=== PATIENT | male | born 1935 | race Caucasian/White ===

== ENCOUNTER 2018-01-22 15:20 | Emergency (ER) | END 2018-01-22 19:04 | disposition short-term general hospital (02) ==

== ENCOUNTER 2018-07-08 19:35 | Emergency (ER) | payer OTHER ==
[~2018-07-08] VITALS: Ht 172.7 cm; Wt 82.0 kg
[~2018-07-08 19:35] MED LIST: ACET-141 PO; ASPI81TA52 PO; ATOR40TA68 PO; CITA10TA10 PO; CYAN500T46 PO; DIV250 PO; DOCU250C68 PO; FINA5TAB4 PO; MELA5TAB4 PO; QUET100T32 PO; TAMS0.4C2 PO; TRAZ-111 PO
[2018-07-08 19:49] VITALS: Ht 172.7 cm; Wt 82.0 kg
--- NOTE | 2018-07-08 23:25 | ERD ---
ER Documentation Chief Complaint Chief Complaint found on floor @ SNF, unk mechanism fall, c/o back pain. +bears weight, NMS HPI This is an 82-year-old male with a past medical history of hyperlipidemia, significant dementia, seizure disorder, BPH who is presenting after a reported fall. The patient was found at his half-way facility on the floor next to his bed. It is unclear how the patient arrived there. It is unclear if the patient had a mechanical fall or if he syncopized. At the time, he was alert and at his baseline mentation. He was complaining of back pain. The patient did not endorse any other pain. He was able to bear weight and walk after the incident. History and physical is limited secondary to patient's chronic altered mentation. ROS Limited secondary to altered mentation. Medications Home Meds Reported Medications Acetaminophen* (Acetaminophen*) 500 MG Extra Strength Tablet, 500 MG PO Q6 PRN for PAIN AND OR ELEVATED TEMP, TAB 01/22/18 Quetiapine Fumarate* (Quetiapine Fumarate*) 100 Mg Tablet, 100 MG PO DAILY, TAB 01/22/18 Divalproex Sodium* (Divalproex Sodium*) 250 Mg Tablet.dr, 250 MG PO BID, #120 TAB 01/22/18 Cyanocobalamin* (Vitamin B12*) 500 Mcg Tab, 1000 MCG PO DAILY, TAB 01/22/18 Trazodone Hcl* (Trazodone Hcl*) 50 Mg Tablet, 50 MG PO QHS, #30 TAB 01/22/18 Tamsulosin Hcl* (Tamsulosin Hcl*) 0.4 Mg Cap.er.24h, 0.4 MG PO HS, CAP 01/22/18 Melatonin (Melatonin) 5 Mg Tablet, 5 MG PO HS, TAB 01/22/18 Finasteride* (Finasteride*) 5 Mg Tablet, 5 MG PO DAILY, TAB 01/22/18 Docusate Sodium* (Dok*) 250 Mg Capsule, 250 MG PO BID, #60 CAP 01/22/18 Citalopram Hydrobromide* (Celexa*) 10 Mg Tablet, 10 MG PO DAILY, #30 TAB 01/22/18 Atorvastatin* (Atorvastatin*) 40 Mg Tablet, 40 MG PO QHS, #30 TAB 01/22/18 Aspirin (Low Dose Aspirin) 81 Mg Tablet.dr, 81 MG PO DAILY, #30 TAB 01/22/18 Allergies Allergies: Coded Allergies: donepezil (Verified Allergy, Unknown, 01/22/18) PMhx/Soc History of Surgery: Yes (R-EYE CATARACT) Hx Miscellaneous Medical Probl: Yes (ALZHEIMER'S, PROSTATE CA, R-EYE RETINAL DETACHMENT) Hx Alcohol Use: No Hx Substance Use: No Hx Tobacco Use: No Smoking Status: Never smoker FmHx The patient is unable to provide secondary to altered mentation. Physical Exam Vitals Vital Signs Date Temp Pulse Resp B/P (MAP) Pulse Ox O2 O2 Flow FiO2 Time Delivery Rate 07/08/18 98.1 68 18 122/76 100 Room Air 23:50 (91) 07/08/18 98.1 52 16 157/85 98 Room Air 20:55 (109) 07/08/18 97.7 64 24 152/90 100 19:49 (110) Physical Exam Const: No apparent distress, well-developed, well-nourished Head: Normocephalic, Atraumatic Eyes: Normal Conjunctiva. Extraocular movements grossly intact. Pupils equal, round and reactive to light ENT: Normal External Ears, Nose and Mouth. Neck: Full range of motion. No meningismus. Resp: Clear to auscultation bilaterally, No wheezes, rales or rhonchi Cardio: Regular rate and rhythm. No murmurs, rubs or gallops Abd: Soft, non tender, non distended. Normal bowel sounds Skin: No petechiae or rashes Back: No midline tenderness. No CVA tenderness Ext: No cyanosis, or edema Neur: Awake and alert. Oriented x0-1, which is his reported baseline. Cranial nerves grossly intact. No facial droop. Normal strength, sensation and coordination. Psych: Normal Mood and Affect Result Diagram: 07/08/18204007/08/182040 Results 24 hrs Laboratory Tests Test 07/08/18 20:38 07/08/18 20:41 07/08/18 20:43 07/08/18 21:01 Bedside Glucose 76 mg/dL 92 mg/dL White Blood Count 6.1 10^3/ul Red Blood Count 4.33 10^6/ul Hemoglobin 13.3 g/dl Hematocrit 40.0 % Mean Corpuscular 92.4 fl Volume Mean Corpuscular 30.7 pg Hemoglobin Mean Corpuscular 33.3 g/dl Hemoglobin Concent Red Cell 13.5 % Distribution Width Platelet Count 158 10^3/UL Mean Platelet 11.9 fl Volume Immature 0.300 % Granulocytes % Neutrophils % 50.5 % Lymphocytes % 34.4 % Monocytes % 11.5 % Eosinophils % 2.5 % Basophils % 0.8 % Nucleated Red Blood 0.0 /100WBC Cells % Immature 0.020 10^3/ul Granulocytes # Neutrophils # 3.1 10^3/ul Lymphocytes # 2.1 10^3/ul Monocytes # 0.7 10^3/ul Eosinophils # 0.2 10^3/ul Basophils # 0.1 10^3/ul Nucleated Red Blood 0.0 10^3/ul Cells # Prothrombin Time 13.1 Sec Prothrombin Time 1.0 Ratio INR International 0.98 Normalized Ratio Sodium Level 142 mmol/L Potassium Level 4.1 mmol/L Chloride Level 106 mmol/L Carbon Dioxide 23 mmol/L Level Anion Gap 13 Blood Urea Nitrogen 19 mg/dl Creatinine 1.18 mg/dl Est Glomerular mL/min Filtrat Rate mL/min Glucose Level 67 mg/dl Calcium Level 9.9 mg/dl Troponin I < 0.012 ng/ml Urine Color STRAW Urine Clarity CLEAR Urine pH 7.0 Urine Specific 1.005 [place] Urine Ketones NEGATIVE mg/dL Urine Nitrite NEGATIVE mg/dL Urine Bilirubin NEGATIVE mg/dL Urine Urobilinogen NEGATIVE mg/dL Urine Leukocyte NEGATIVE Cira/ul Esterase Urine Hemoglobin NEGATIVE mg/dL Urine Glucose NEGATIVE mg/dL Urine Total Protein NEGATIVE mg/dl Procedures/MDM MDM The patient's presentation warrants further investigation. Previous medical records, if available, were reviewed. LABS The patient's laboratory testing was obtained and reviewed. No emergent treatment was required unless described below. CBC: No E/o systemic infection or severe anemia or thrombocytopenia. Mild normocytic anemia, not emergent. Chemistry: No E/o severe acidosis or alkalosis or renal failure or diabetic ketoacidosis. Mild hypoglycemia, improved with oral repletion. PT/INR: No E/o significant coagulopathy Troponin: No E/o acute ischemia Urine: No E/o acute infection or hematuria EKG EKG read by me: Rate/Rhythm: Sinus bradycardia at 53 bpm with a PAC present Intervals: Normal [place]: Normal Impression: No evidence of acute ischemia. Sinus bradycardia. IMAGING Imaging and Radiology interpretation reviewed. CXR FINDINGS: No focal pulmonary consolidation. Tortuous aorta is noted with atherosclerotic calcifications. Cardiac and mediastinal contours otherwise unremarkable. There is no pleural effusion or pneumothorax. Bones and soft tissues are unremarkable. IMPRESSION: No acute cardiac or pulmonary findings. Electronically viewed and signed by Physician Matty on 07/08/2018 21:47 CT Head FINDINGS: Brain: Small lacunar infarct in the posterior limb of the left internal capsule is unchanged. No mass, hemorrhage, or evidence of acute infarct. There is parenchymal volume loss. Periventricular and subcortical white matter hypodensities are seen, nonspecific, likely related to chronic small vessel ischemic disease. The ventricles are otherwise normal in size and configuration. Intracranial atherosclerotic calcifications are noted. Bones: The skull base and calvarium are normal in appearance. Orbits: Right scleral band with lens replacement again noted. Soft tissues: Unremarkable Paranasal sinuses: Mild left frontal sinus disease noted. IMPRESSION: No acute intracranial findings. 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 No acute fractures or traumatic subluxations 2. Degenerative enthesopathy from the T12-L5 levels. 3. Moderate disc space height loss and vacuum disc phenomenon at L2-3 and L3-4 4. Multilevel broad-based disc osteophyte complexes at the L1-2 through L5-S1 levels with moderate to severe central canal stenosis at L3-4 and moderate at L2-3 5. Multilevel neural foraminal stenosis at the L1-2 through L5-S1 levels as noted above. 6. Multilevel facet and ligamentum flavum osteoarthropathy Electronically viewed and signed by .Kendal Holland MD, on 07/08/2018 22:06 TREATMENT/DISPOSITION The patient presents after a syncopal event. The patient has a reassuring physical exam. The patient is not clinically orthostatic. The patient is not dizzy. I have decreased suspicion for vertigo. The patient has no signs of emergent or symptomatic anemia. The patient does not have any emergent electrolyte or metabolic emergencies. The patient's blood sugar was mildly low. The patient was fed and his blood sugar improved. I have decrease suspicion for a thyroid disorder. The patient is not toxic appearing. I have decreased suspicion for an infectious etiology of symptoms. The patient's EKG and troponin are reassuring. I have low suspicion for acute coronary syndrome. I do not see evidence of any emergent cardiac arrhythmia, which includes but is not limited to heart block, Brugada syndrome or WPW. The patient is mildly bradycardic, but it was stable in the emergency department. I doubt this to be the etiology of his symptoms today. The patient has no heart murmurs or rales. There is no evidence of cardiomegaly on exam or chest xray. I have low suspicion for hypertrophic cardiomyopathy. I do not see evidence of CHF. The patient does not endorse any chest or pleuritic pain. The history is negative for bleeding or clotting disorders. The patient has not been involved in any recent prolonged trips or surgeries or hospitalizations. The patient has no calf tenderness or swelling. I have decreased suspicion for PE as the e tiology of symptoms. The patient has no focal deficits. The neurologic exam is reassuring. I have d ecreased suspicion for cerebral ischemia. There was no trauma or injury. There is no personal or family history of cerebral aneurysm. I have decreased suspicion for SAH or other ICH. I have low suspicion for temporal arteritis, cavernous venous thrombosis, subdural hematoma, epidural hematoma, meningitis. The [place] Syncope Rule was applied and the patient was found to be low risk for a serious outcome. There is no external evidence of trauma or injury. The patient was evaluated fully without evidence of emergent posttraumatic pathology. The patient's CT imaging of the head and cervical spine are unremarkable. The patient has no cervical spine tenderness. He can move his neck in all directions without any pain. The patient's cervical spine was cleared. The patient is ambulatory. The patient does not have any saddle anesthesia. He has not been incontinent of urine or stool. He has not had any retention of urine or stool. I have low suspicion for spinal cord injury. The patient's chest x-ray does not reveal any evidence of pneumonia or pneumothorax or pulmonary edema or pleural effusion. The patient's cardiomediastinal silhouette is unremarkable. I do not suspect pericardial effusion. I do not see any mediastinal free air. I have low suspicion for esophageal tear or rupture. The patient does not have a widened mediastinum. The patient does not have chest pain radiating to the back. It does not have a sharp or tearing quality. I have low suspicion for thoracic aortic aneurysm or rupture or dissection. The patient's symptoms are not consistent with pulmonary embolis m. The patient does not have any abdominal pain. I have low suspicion for posttraumatic intra-abdominal pathology. The patient's vital signs are unremarkable. I low suspicion for hepatic or splenic or renal trauma. The patient does not have any GI or urinary bleeding. I decreased suspicion for int estinal injury. I have low suspicion for urethral injury. I have low suspicion for extremity injury. There is no evidence of any penetrating injuries. Upon reevaluation of the patient, symptoms have improved. No emergent diagnoses were identified. At this time, I feel that the patient stable for discharge. The patient was instructed to follow-up with a primary care physician in 1-3 days. The patient will be given strict precautions with which to return to the emergency department. Prescriptions: None The patient's blood pressure was elevated at greater than 120/80 while in the emergency department. The patient was otherwise stable with no evidence of hypertensive urgency or emergency. The patient does not require admission for blood pressure control. I have discussed with the patient the risks of hypertension. I have instructed the patient to return to the ER for any new or worsening symptoms including chest pain, shortness of breath, headache, blurred vision, confusion, nausea, vomiting or LOC. I have advised the patient to follow up with the primary care physician for outpatient monitoring and treatment for hypertension in 1-3 days. Disclaimer: Inadvertent spelling and grammatical errors are likely due to EHR/dictation software use and do not reflect on the overall quality of patient care. Note that the electronic time recorded on this note does not necessarily reflect the actual time of the patient encounter. Departure Diagnosis: Primary Impression: Fall with no significant injury Encounter type: initial encounter Qualified Codes: W19.XXXA - Unspecified fall, initial encounter Additional Impressions: Back pain Back pain location: low back pain Chronicity: acute Back pain laterality: midline Sciatica presence: without sciatica Qualified Codes: M54.5 - Low back pain Normocytic anemia Fall from ground level Hypoglycemia Bradycardia Condition: Stable BRUCE SANCHEZ MD Jul 08, 2018 23:10
[2018-07-08 23:50] VITALS: BP 122/76; PULSE 68; RESP 18
== END 2018-07-09 00:07 | disposition home or self-care (01) ==
LOC: E/R 19:35
DX: M54.5 Low back pain (principal); G30.9 Alzheimer's disease, unspecified; D64.9 Anemia, unspecified; E16.2 Hypoglycemia, unspecified; R00.1 Bradycardia, unspecified; R55 Syncope and collapse; Z79.82 Long term (current) use of aspirin; Z85.46 Personal history of malignant neoplasm of prostate
CPT/HCPCS: 36415; 70450; 71045; 72131; 80048; 81003; 82962; 84484; 85025; 85610; 93005

== ENCOUNTER 2018-09-15 15:09 | Emergency (ER) | payer OTHER ==
[~2018-09-15] VITALS: Wt 80.0 kg
[2018-09-15] MEDS ORDERED: LACTATED RINGER'S 1,000 ML IV STA (16:05)
[2018-09-15] MEDS ORDERED: SOD CHLORIDE 0.9% 1,000 ML IV STA (16:05)
--- NOTE | 2018-09-15 16:10 | ERD ---
ER Documentation Chief Complaint Chief Complaint [facility]ENT FROM [facility]. GEN WEAKNESS AND LOW BP. NO NEURO CHANGES HPI This is an 82-year-old man with a history of BPH and dementia brought in by EMS from longterm for generalized weakness today, decreased mental status, and low blood pressure. Upon EMS arrival patient systolic blood pressure was about 80 mmHg and he appeared dehydrated to them, they administered a small bolus of IV fluid and his blood pressure went up to normal. He has had no fevers or chills, no vomiting, no blood per rectum or melena, no complaints of chest pain or shortness of breath although HPI is limited as patient is mostly nonverbal was supplemented by speaking to EMS and reviewing longterm records. ROS All systems reviewed and are negative except as per history of present illness. Medications Home Meds Reported Medications Acetaminophen* (Acetaminophen*) 500 MG Extra Strength Tablet, 500 MG PO Q6 PRN for PAIN AND OR ELEVATED TEMP, TAB 01/22/18 Quetiapine Fumarate* (Quetiapine Fumarate*) 100 Mg Tablet, 100 MG PO DAILY, TAB 01/22/18 Divalproex Sodium* (Divalproex Sodium*) 250 Mg Tablet.dr, 250 MG PO BID, #120 TAB 01/22/18 Cyanocobalamin* (Vitamin B12*) 500 Mcg Tab, 1000 MCG PO DAILY, TAB 01/22/18 Trazodone Hcl* (Trazodone Hcl*) 50 Mg Tablet, 50 MG PO QHS, #30 TAB 01/22/18 Tamsulosin Hcl* (Tamsulosin Hcl*) 0.4 Mg Cap.er.24h, 0.4 MG PO HS, CAP 01/22/18 Melatonin (Melatonin) 5 Mg Tablet, 5 MG PO HS, TAB 01/22/18 Finasteride* (Finasteride*) 5 Mg Tablet, 5 MG PO DAILY, TAB 01/22/18 Docusate Sodium* (Dok*) 250 Mg Capsule, 250 MG PO BID, #60 CAP 01/22/18 Citalopram Hydrobromide* (Celexa*) 10 Mg Tablet, 10 MG PO DAILY, #30 TAB 01/22/18 Atorvastatin* (Atorvastatin*) 40 Mg Tablet, 40 MG PO QHS, #30 TAB 01/22/18 Aspirin (Low Dose Aspirin) 81 Mg Tablet.dr, 81 MG PO DAILY, #30 TAB 01/22/18 Allergies Allergies: Coded Allergies: donepezil (Verified Allergy, Unknown, 01/22/18) PMhx/Soc Dementia, CAD, BPH, hypertension, dyslipidemia History of Surgery: Yes (R-EYE CATARACT) Hx Miscellaneous Medical Probl: Yes (ALZHEIMER'S, PROSTATE CA, R-EYE RETINAL DETACHMENT) Hx Alcohol Use: No Hx Substance Use: No Hx Tobacco Use: No FmHx Family History: No diabetes Physical Exam Vitals Vital Signs Date Temp Pulse Resp B/P (MAP) Pulse Ox O2 O2 Flow FiO2 Time Delivery Rate 09/15/18 98.0 60 12 105/87 98 Room Air 18:05 (93) 09/15/18 62 14 123/80 97 Room Air 17:00 (94) 09/15/18 57 14 105/64 97 Room Air 16:21 (78) 09/15/18 98.2 51 18 113/52 98 15:49 (72) 09/15/18 55 16 92/64 (73) 99 Room Air 15:42 Physical Exam Const: No acute distress, chronically encephalopathic, appears dehydrated, afebrile HEENT: Dry mucous membranes, pink conjunctive a, no cervical spine deformity Resp: Clear to auscultation bilaterally Cardio: Bradycardic and regular Abd: Soft, non tender, non distended. Normal bowel sounds, no guarding or rigidity, no rebound Skin: No petechiae or rashes, no abrasions or contusions, no hematomas Back: No midline or flank tenderness Ext: No cyanosis, or edema, calves symmetrical Neur: Awake and alert x1, patient is confused, no focal deficits or facial asymmetry Psych: Unable to evaluate Result Diagram: 09/15/18 1623 09/15/18 1623 Results 24 hrs Laboratory Tests Test 09/15/18 16:23 09/15/18 16:40 White Blood Count 6.1 10^3/ul Red Blood Count 3.95 10^6/ul Hemoglobin 12.0 g/dl Hematocrit 36.9 % Mean Corpuscular Volume 93.4 fl Mean Corpuscular Hemoglobin 30.4 pg Mean Corpuscular Hemoglobin Concent 32.5 g/dl Red Cell Distribution Width 13.9 % Platelet Count 97 10^3/UL Mean Platelet Volume 12.1 fl Immature Granulocytes % 0.200 % Neutrophils % 65.9 % Lymphocytes % 19.8 % Monocytes % 11.0 % Eosinophils % 2.3 % Basophils % 0.8 % Nucleated Red Blood Cells % 0.0 /100WBC Immature Granulocytes # 0.010 10^3/ul Neutrophils # 4.0 10^3/ul Lymphocytes # 1.2 10^3/ul Monocytes # 0.7 10^3/ul Eosinophils # 0.1 10^3/ul Basophils # 0.1 10^3/ul Nucleated Red Blood Cells # 0.0 10^3/ul Prothrombin Time 14.6 Sec Prothrombin Time Ratio 1.1 INR International Normalized Ratio 1.13 Activated Partial Thromboplast Time 26.6 Sec Sodium Level 143 mmol/L Potassium Level 4.1 mmol/L Chloride Level 109 mmol/L Carbon Dioxide Level 27 mmol/L Anion Gap 7 Blood Urea Nitrogen 21 mg/dl Creatinine 1.31 mg/dl Est Glomerular Filtrat Rate mL/min mL/min Glucose Level 91 mg/dl Calcium Level 8.8 mg/dl Total Bilirubin 0.6 mg/dl Direct Bilirubin 0.00 mg/dl Indirect Bilirubin 0.6 mg/dl Aspartate Amino Transf (AST/SGOT) 16 IU/L Alanine Aminotransferase (ALT/SGPT) 15 IU/L Alkaline Phosphatase 49 IU/L Troponin I < 0.012 ng/ml Total Protein 6.8 g/dl Albumin 3.6 g/dl Globulin 3.20 g/dl Albumin/Globulin Ratio 1.12 Lipase 87 U/L Urine Color YELLOW Urine Clarity CLEAR Urine pH 7.0 Urine Specific [place] 1.019 Urine Ketones NEGATIVE mg/dL Urine Nitrite NEGATIVE mg/dL Urine Bilirubin NEGATIVE mg/dL Urine Urobilinogen NEGATIVE mg/dL Urine Leukocyte Esterase NEGATIVE Cira/ul Urine Hemoglobin NEGATIVE mg/dL Urine Glucose NEGATIVE mg/dL Urine Total Protein NEGATIVE mg/dl Current Medications Medications Dose Sig/[place] Start Time Status Last (Trade) Ordered Route PRN Stop Time Admin Dose Reason Admin Sodium 1,000 ml @ Q1H STAT 09/15/18 DC 09/15/18 Chloride 1,000 mls/hr IV 16:05 16:21 09/15/18 17:04 Lactated 1,000 ml @ Q1H STAT 09/15/18 DC 09/15/18 Ringer's 1,000 mls/hr IV 16:05 16:40 09/15/18 17:04 Procedures/MDM IV line was established patient was placed on geriatric case manager rhythm strip revealed a sinus bradycardia at about 50 bpm with upright P and T waves. Patient was afebrile I administered 2 L IV crystalloid for initial hypotension and dehydration. EKG performed, read by me revealed a sinus bradycardia 48 bpm, normal axis, narrow QRS complex, no concerning ST elevations or depressions noted CBC and electrolytes were unremarkable with a BUN/creatinine ratio was elevated suggesting dehydration, liver function test normal, troponin negative, urine analysis negative for infection Chest X-ray 1V Interpreted by me: Soft Tissue: No acute abnormalities Bones: No acute abnormalities Mediastinum/Cardiac Silhouette/Lungs: No acute abnormalities Family members were at the bedside and stated after IV fluids patient fell and looked much better, he was more communicative and back to his baseline mental status. They stated he has had syncopal episodes and generalized weakness in the past and they attribute today symptoms to overall dehydration. Patient's vital signs are normal and his pulse is 70 bpm. Differential diagnoses considered, included but not limited to acute coronary syndrome, pulmonary embolism, aortic dissection, abdominal aortic aneurysm, sepsis, stroke, meningitis, encephalitis, pneumonia, appendicitis, cholecystitis, bowel obstruction, pyelonephritis, nephrolithiasis, cystitis, as well as metabolic, hematologic, and electrolyte abnormalities. As well as abscess, cellulitis, fractures, and dislocations. Patient feels much better at this time, and vital signs are normal, symptoms have improved. I did give strict instructions to return to the ED if symptoms continue or worsen, patient will otherwise follow-up with primary care physician. Patient understood instructions and agreed to plan. Disclaimer: Inadvertent spelling and grammatical errors are likely due to EHR/dictation software use and do not reflect on the overall quality of patient care. Also, please note that the electronic time recorded on this note does not necessarily reflect the actual time of the patient encounter. Departure Diagnosis: Primary Impression: Acute dehydration Additional Impression: Dementia Dementia type: unspecified type Dementia behavioral disturbance: with behavioral disturbance Qualified Codes: F03.91 - Unspecified dementia with behavioral disturbance Condition: LESLY Menjivar MD September 15, 2018 16:10
[2018-09-15 18:05] VITALS: BP 105/87; PULSE 60; RESP 12
== END 2018-09-15 18:05 | disposition home or self-care (01) ==
LOC: E/R 15:09
DX: E86.0 Dehydration (principal); F03.91 Unspecified dementia, unspecified severity, with behavioral disturbance; I10 Essential (primary) hypertension; R40.2142 Coma scale, eyes open, spontaneous, at arrival to emergency department; R40.2242 Coma scale, best verbal response, confused conversation, at arrival to emergency department; R40.2362 Coma scale, best motor response, obeys commands, at arrival to emergency department; I25.10 Atherosclerotic heart disease of native coronary artery without angina pectoris; R07.9 Chest pain, unspecified; Z85.46 Personal history of malignant neoplasm of prostate; Z79.82 Long term (current) use of aspirin
CPT/HCPCS: 36415; 71045; 80053; 81003; 83690; 84484; 85025; 85610; 85730; 87086; 93005; 99285; J7030; J7120; P9612

== ENCOUNTER 2018-10-01 03:33 | Emergency (ER) | payer OTHER ==
[~2018-10-01] VITALS: Ht 167.6 cm; Wt 79.5 kg
[2018-10-01] MEDS ORDERED: morphine 4 MG/ML VIAL IV STA (03:47)
[2018-10-01] MEDS ORDERED: ONDANSETRON 4 MG INJ IV STA (03:47)
[2018-10-01] MEDS ORDERED: SOD CHLORIDE 0.9% 1,000 ML IV STA (03:47)
[2018-10-01 03:50] VITALS: Ht 167.6 cm; Wt 79.5 kg
[2018-10-01] MEDS ORDERED: SODIUM CHLORIDE 0.9% 1L BAG IV* STA (04:51)
[2018-10-01] MEDS ORDERED: CEFTRIAXONE 1 GM/50 ML (PMX) 50 ML IVPB STA (04:51)
[2018-10-01] MEDS ORDERED: KETOROLAC 15 MG INJ IV STA (04:53)
[2018-10-01] MEDS ORDERED: FENTAnyl 50 MCG/ML VIAL IV ONE (05:00)
--- NOTE | 2018-10-01 05:39 | ERD ---
ER Documentation Chief Complaint Chief Complaint BIB RA39 for dysuria, flank pain HPI This is an 82-year-old male with a past medical history of hyperlipidemia, Alzheimer's dementia, seizure disorder, BPH who is presenting from his prison facility with 1 to 2 days of sharp aching cramping moderate suprapubic pain and bilateral flank pain. The patient also endorses dysuria and difficulty with urination. There is no reported fever at the facility. History and physical is limited secondary to dementia. ROS All systems reviewed and are negative except as per history of present illness. Medications Home Meds Reported Medications Acetaminophen* (Acetaminophen*) 500 MG Extra Strength Tablet, 500 MG PO Q6 PRN for PAIN AND OR ELEVATED TEMP, TAB 01/22/18 Quetiapine Fumarate* (Quetiapine Fumarate*) 100 Mg Tablet, 100 MG PO DAILY, TAB 01/22/18 Divalproex Sodium* (Divalproex Sodium*) 250 Mg Tablet.dr, 250 MG PO BID, #120 TA B 01/22/18 Cyanocobalamin* (Vitamin B12*) 500 Mcg Tab, 1000 MCG PO DAILY, TAB 01/22/18 Trazodone Hcl* (Trazodone Hcl*) 50 Mg Tablet, 50 MG PO QHS, #30 TAB 01/22/18 Tamsulosin Hcl* (Tamsulosin Hcl*) 0.4 Mg Cap.er.24h, 0.4 MG PO HS, CAP 01/22/18 Melatonin (Melatonin) 5 Mg Tablet, 5 MG PO HS, TAB 01/22/18 Finasteride* (Finasteride*) 5 Mg Tablet, 5 MG PO DAILY, TAB 01/22/18 Docusate Sodium* (Dok*) 250 Mg Capsule, 250 MG PO BID, #60 CAP 01/22/18 Citalopram Hydrobromide* (Celexa*) 10 Mg Tablet, 10 MG PO DAILY, #30 TAB 01/22/18 Atorvastatin* (Atorvastatin*) 40 Mg Tablet, 40 MG PO QHS, #30 TAB 01/22/18 Aspirin (Low Dose Aspirin) 81 Mg Tablet.dr, 81 MG PO DAILY, #30 TAB 01/22/18 Allergies Allergies: Coded Allergies: donepezil (Verified Allergy, Unknown, 01/22/18) PMhx/Soc History of Surgery: Yes (R-EYE CATARACT) Hx Miscellaneous Medical Probl: Yes (ALZHEIMER'S, PROSTATE CA, R-EYE RETINAL DETACHMENT) Hx Alcohol Use: No Hx Substance Use: No Hx Tobacco Use: No Smoking Status: Never smoker FmHx Family History: No diabetes Physical Exam Vitals Vital Signs Date Temp Pulse Resp B/P (MAP) Pulse Ox O2 O2 Flow FiO2 Time Delivery Rate 10/01/18 98.5 68 17 94 Room Air 05:26 10/01/18 72 20 129/85 100 03:50 (100) Physical Exam Const: In distress Head: Atraumatic Eyes: Normal Conjunctiva ENT: Normal External Ears, Nose and Mouth. Neck: Full range of motion. No meningismus. Resp: Clear to auscultation bilaterally Cardio: Regular rate and rhythm, no murmurs Abd: Soft, non distended. Suprapubic tenderness. Normal bowel sounds Skin: No petechiae or rashes Back: No midline or flank tenderness Ext: No cyanosis, or edema Neur: Awake and alert Psych: Agitated Result Diagram: 10/01/18 0355 10/01/18 0355 Results 24 hrs Laboratory Tests Test 10/01/18 03:55 10/01/18 04:00 10/01/18 04:12 White Blood Count 8.6 10^3/ul Red Blood Count 4.14 10^6/ul Hemoglobin 12.7 g/dl Hematocrit 39.4 % Mean Corpuscular Volume 95.2 fl Mean Corpuscular Hemoglobin 30.7 pg Mean Corpuscular 32.2 g/dl Hemoglobin Concent Red Cell Distribution Width 14.1 % Platelet Count 131 10^3/UL Mean Platelet Volume 12.0 fl Immature Granulocytes % 0.200 % Neutrophils % 61.8 % Lymphocytes % 21.2 % Monocytes % 11.3 % Eosinophils % 4.8 % Basophils % 0.7 % Nucleated Red Blood Cells % 0.0 /100WBC Immature Granulocytes # 0.020 10^3/ul Neutrophils # 5.3 10^3/ul Lymphocytes # 1.8 10^3/ul Monocytes # 1.0 10^3/ul Eosinophils # 0.4 10^3/ul Basophils # 0.1 10^3/ul Nucleated Red Blood Cells # 0.0 10^3/ul Prothrombin Time 13.3 Sec Prothrombin Time Ratio 1.0 INR International 1.00 Normalized Ratio Urine Color YELLOW Urine Clarity CLOUDY Urine pH 5.0 Urine Specific Hallock 1.017 Urine Ketones TRACE mg/dL Urine Nitrite NEGATIVE mg/dL Urine Bilirubin NEGATIVE mg/dL Urine Urobilinogen 1+ mg/dL Urine Leukocyte Esterase 2+ Cira/ul Urine Microscopic RBC > 182 /HPF Urine Microscopic WBC > 182 /HPF Urine Amorphous Crystals FEW /HPF Urine Bacteria FEW /HPF Urine Hemoglobin 3+ mg/dL Urine Glucose NEGATIVE mg/dL Urine Total Protein 3+ mg/dl Sodium Level 145 mmol/L Potassium Level 5.2 mmol/L Chloride Level 109 mmol/L Carbon Dioxide Level 26 mmol/L Anion Gap 10 Blood Urea Nitrogen 24 mg/dl Creatinine 1.26 mg/dl Est Glomerular Filtrat mL/min Rate mL/min Glucose Level 92 mg/dl Calcium Level 9.6 mg/dl Total Bilirubin 1.0 mg/dl Direct Bilirubin 0.00 mg/dl Indirect Bilirubin 1.0 mg/dl Aspartate Amino Transf (AST/SGOT) 18 IU/L Alanine 14 IU/L Aminotransferase (ALT/SGPT) Alkaline Phosphatase 52 IU/L Total Protein 7.6 g/dl Albumin 4.1 g/dl Globulin 3.50 g/dl Albumin/Globulin Ratio 1.17 Lipase 63 U/L POC Venous Lactate 3.9 mmol/L Bedside Urine pH (LAB) 6.0 Bedside Urine Protein (LAB) 3+ Bedside Urine Glucose (UA) Negative Bedside Urine Ketones (LAB) Trace Bedside Urine Blood 3+ Bedside Urine Nitrite (LAB) Negative Bedside Urine Leukocyte Esterase Trace (L Current Medications Medications Dose Sig/Brook Start Time Status Last (Trade) Ordered Route PRN Stop Time Admin Dose Reason Admin Sodium 1,000 ml @ Q1H STAT 10/01/18 DC 10/01/18 Chloride 1,000 mls/hr IV 03:47 03:53 10/01/18 04:46 Morphine 4 mg ONCE STAT 10/01/18 DC 10/01/18 Sulfate IV 03:47 03:53 (morphine) 10/01/18 03:48 Ondansetron 4 mg ONCE STAT 10/01/18 DC 10/01/18 HCl (Zofran IV 03:47 03:53 Inj) 10/01/18 03:48 Sodium 1,390 ml BOLUS OVER 2 10/01/18 DC 10/01/18 Chloride HOURS STAT 04:51 04:59 (NS) IV* 10/01/18 04:56 Ceftriaxone 50 ml @ ONCE STAT 10/01/18 DC 10/01/18 Sodium 100 mls/hr IVPB 04:51 04:59 10/01/18 05:20 Ketorolac 15 mg ONCE STAT 10/01/18 DC 10/01/18 Tromethamine IV 04:53 04:59 (Toradol) 10/01/18 04:55 Fentanyl 50 mcg ONCE ONCE 10/01/18 DC 10/01/18 (Sublimaze) IV 05:00 04:59 10/01/18 05:01 Procedures/MDM MDM The patient's presentation warrants further investigation. Previous medical records, if available, were reviewed. LABS The patient's laboratory testing was obtained and reviewed. No emergent tr eatment was required unless described below. CBC: No E/o systemic infection or thrombocytopenia. Normocytic anemia, not emergent. Chemistry: No E/o severe acidosis or alkalosis or liver disease or diabetic ketoacidosis. Mild hypernatremia and hyperkalemia, not emergent. Elevated BUN and creatinine in line with previous studies. Lipase: No E/o pancreatitis PT/INR: No E/o significant coagulopathy Lactate: E/o severe sepsis Urine: E/o acute infection and hematuria EKG EKG read by me: Rate/Rhythm: Regular rate and rhythm at a rate of 67 bpm Intervals: Normal Hudson: Normal Impression: No evidence of acute ischemia or arrhythmia IMAGING Imaging and Radiology interpretation reviewed. CXR FINDINGS: SUPPORT DEVICES: None. CARDIAC AND MEDIASTINAL SILHOUETTES: Normal in size . There are thoracic aortic atherosclerotic calcifications. LUNGS AND PLEURAL SPACE: The patient's chin obscures the bilateral medial apices. Diminished lung volumes with lower lobe on vessel crowding. Bibasilar discoid atelectasis or fibrosis. Clear costophrenic angles. PNEUMOTHORAX: None. OSSEOUS STRUCTURES: Unremarkable. IMPRESSION: 1. Bibasilar discoid atelectasis or fibrosis. 2. Thoracic aortic atherosclerosis. Electronically viewed and signed by Ameya Apple Physician on 10/01/2018 04:51 CT Abd/Pelvis FINDINGS: In the absence of intravenous contrast, the study constitutes a limited assess ment of the solid organs, bowel and vessels. LUNG BASES: Bibasilar dependent subsegmental atelectasis. ABDOMEN/PELVIS: Liver: Multiple hepatic cysts the largest located in the medial segment of the left lobe measuring 3.1 x 3.3 cm Gallbladder: Normal noncontrast appearance. Bile ducts: No intrahepatic or extrahepatic biliary duct dilatation. Spleen: Normal noncontrast appearance. Pancreas: Normal noncontrast appearance. Adrenal glands: Normal noncontrast appearance. Kidneys and ureters: No hydronephrosis or renal calculus. There are bilateral renal cysts the largest located in the left inferior pole measuring 3.7 x 4.1 cm. Aorta and IVC: There are aortic atherosclerotic calcifications. Lymph nodes: Normal noncontrast appearance. Gastrointestinal tract: The stomach is collapsed. Small bowel loops are non distended. Moderate retained fecal matter is seen throughout the ascending thro ugh mid descending colon possibly reflecting constipation Appendix: The appendix is not seen. Bladder: Indwelling Yost catheter. The urinary bladder wall is thickened. There is nonspecific mesenteric stranding surrounding the bladder which may reflect cystitis. Pelvic Organs: Normal noncontrast appearance. Peritoneal cavity: No free fluid or free intraperitoneal air. Abdominal wall: Normal noncontrast appearance. MUSCULOSKELETAL: No acute fracture. No suspicious bone lesions. IMPRESSION: 1. Thickened urinary bladder wall which may be secondary to incomplete distension with indwelling Yost catheter present. Diffuse surrounding mesenteric stranding may reflect cystitis. Correlate with urinalysis. 2. Hepatic and bilateral renal cysts. Please note that in the absence of intravenous contrast the study does not evaluate the patency of the vasculature. Electronically viewed and signed by Physician Anneliese on 10/01/2018 05:04 TREATMENT/DISPOSITION The patient presents for significant abdominal pain for an unknown duration. The patient was in distress when he first arrived. A Yost catheter was placed which did provide some relief, but the patient's pain recurred. The patient was given a dose of morphine and fentanyl in the emergency department with improvement of his pain. An abdominal work-up was performed, which did include a lactic acid. The patient's lactic acid was found to be elevated at 3.9. At that time, a sepsis work-up was completed. The patient's vital signs are normal. He is afebrile. He does not have a leukocytosis. I did opt to complete the sepsis bolus and treat the patient for his urinary tract infection for the possibility of severe sepsis. The patient does not have any evidence of peritonitis. The patient does not have clinical symptoms concerning for mesenteric ischemia or ischemic colitis. The patient does not have right upper quadrant tenderness, and I have low suspicion for gallstones, cholecystitis or biliary colic. The patient does not have any epigastric pain. I have low suspicion for gastritis, PUD or GERD. The patient does not have left upper quadrant tenderness. I have low suspicion for pancreatitis. The patient does not have any right lower quadrant tenderness, or periumbilical tenderness. I have low suspicion for appendicitis. The patient does not have any left lower quadrant tenderness, and I have low suspicion for diverticulosis or diverticulitis. I do not see evidence of nephrolithiasis. The patient does not have any palpable pulsatile mass or severe abdominal pain radiating to the back. I have low suspicion for aortic aneurysm, dissection or rupture. SEPSIS NOTE Infectious source: UTI End organ damage indicated by: Lactate > 2.0 mmol/L SEPSIS MANAGEMENT Time to recognize sepsis: 0. Time to recognize severe sepsis: 0400. Time to recognize septic shock: No septic shock at this time. 3 HOUR BUNDLE Blood cultures x 2 before abx: Yes 30 ml/kg NS bolus completed Initial lactate 3.9 Repeat lactate pending SEPTIC SHOCK ASSESSMENT: NO lactic acid > 4.0 NO persistent hypotension (SBP < 90 or 40 mmHg drop, MAP < 65) despite 30 L/kg IV fluid bolus CRITICAL CARE Critical care time 31 minutes Emergent fluid management while maintaining close respiratory support. Provi prashanth of immediate and broad-spectrum antibiotic therapy. Simultaneous assessment for possible sources in order to direct targeted therapy. Consideration for invasive and chemical support to prevent cardiopulmonary collapse. Critical care time is independent of procedures performed. TRANSFER At this time, I feel that the patient requires admission for further evaluation and management. The case was discussed with Dr. Patel of [facility] who accepted the patient to [facility]. Disclaimer: Inadvertent spelling and grammatical errors are likely due to EHR/dictation software use and do not reflect on the overall quality of patient care. Note that the electronic time recorded on this note does not necessarily reflect the actual time of the patient encounter. Departure Diagnosis: Primary Impression: Severe sepsis Additional Impressions: Urinary tract infection Urinary tract infection type: acute cystitis Hematuria presence: without hematuria Qualified Codes: N30.00 - Acute cystitis without hematuria Lactic acidosis Hypernatremia Hyperkalemia Chronic kidney disease Chronic kidney disease stage: unspecified stage Qualified Codes: N18.9 - Chronic kidney disease, unspecified Normocytic anemia Thrombocytopenia Condition: Serious BRUCE SANCHEZ MD October 01, 2018 05:39
[2018-10-01 07:55] VITALS: BP 104/72; PULSE 58; RESP 13
== END 2018-10-01 08:23 | disposition short-term general hospital (02) ==
LOC: E/R 03:33
DX: A41.9 Sepsis, unspecified organism (principal); R65.20 Severe sepsis without septic shock; N30.00 Acute cystitis without hematuria; E87.2 Acidosis; E87.0 Hyperosmolality and hypernatremia; E87.5 Hyperkalemia; N18.9 Chronic kidney disease, unspecified; D64.9 Anemia, unspecified; D69.6 Thrombocytopenia, unspecified; R40.2142 Coma scale, eyes open, spontaneous, at arrival to emergency department; R40.2252 Coma scale, best verbal response, oriented, at arrival to emergency department; R40.2362 Coma scale, best motor response, obeys commands, at arrival to emergency department; G30.9 Alzheimer's disease, unspecified; Z85.46 Personal history of malignant neoplasm of prostate; Z79.82 Long term (current) use of aspirin
CPT/HCPCS: 51702; 71045; 74176; 80053; 81001; 81003; 83605; 83690; 85025; 85610; 87040; J0696; J1885; J2270; J2405; J3010; J7030; 36415; 93005; 96374; 96375

== ENCOUNTER 2018-10-20 14:22 | Emergency (ER) | payer OTHER ==
[~2018-10-20] VITALS: Ht 167.6 cm; Wt 75.0 kg
[2018-10-20 14:26] VITALS: Ht 167.6 cm; Wt 75.0 kg
[2018-10-20] MEDS ORDERED: ONDANSETRON 4 MG INJ IV STA (14:37)
[2018-10-20] MEDS ORDERED: SOD CHLORIDE 0.9% 1,000 ML IV STA (14:37)
[2018-10-20] MEDS ORDERED: HYDROmorphONE 1 MG/ML SYG IV STA (14:37)
[2018-10-20] MEDS ORDERED: CYAN-23 PO (15:57)
[2018-10-20] MEDS ORDERED: CHOL100062 PO (15:58)
[2018-10-20] MEDS ORDERED: POLY17PO6 PO (15:58)
[2018-10-20] MEDS ORDERED: ACET-141 PO (16:03)
[2018-10-20] MEDS ORDERED: metroNIDAZOLE 500 MG/NS (PMX) 100 ML IVPB ONE (17:30)
--- NOTE | 2018-10-20 18:01 | ERD ---
ER Documentation Chief Complaint Chief Complaint R39. VOMITING X 1 DAY. HX DEMENTIA. HPI This is a 82-year-old male who was sent from nursing facility because he had an episode of vomiting and some diarrhea. Patient has a history of severe dementia. He is unable to give a good history. Her asking him questions with a historic preservationist and he said he does not have any pain at all right now. The patient was put into the ER bed he had a large very malodorous bowel movement ROS All systems reviewed and are negative except as per history of present illness. Medications Home Meds Reported Medications Acetaminophen* (Acetaminophen*) 500 MG Extra Strength Tablet, 1000 MG PO BID PRN for PAIN AND OR ELEVATED TEMP, TAB 10/20/18 Cholecalciferol* (Vitamin D3*) 1,000 Unit Tablet, 1000 UNIT PO DAILY, TAB 10/20/18 Polyethylene Glycol* (Miralax*) 17 Gm Powd.pack, 17 GM PO DAILY, #30 PACKET 10/20/18 Cyanocobalamin (Vitamin B-12) (Vitamin B-12) 1,000 Mcg Capsule, 1000 MCG PO DAILY, CAP 10/20/18 Acetaminophen* (Acetaminophen*) 500 MG Extra Strength Tablet, 500 MG PO Q6 PRN for PAIN AND OR ELEVATED TEMP, TAB 01/22/18 Quetiapine Fumarate* (Quetiapine Fumarate*) 100 Mg Tablet, 50 MG PO Q 12PM, TAB HOLD IF PATIENT SLEEPY 01/22/18 Divalproex Sodium* (Divalproex Sodium*) 250 Mg Tablet.dr, 250 MG PO QPM, #120 TAB 01/22/18 Trazodone Hcl* (Trazodone Hcl*) 50 Mg Tablet, 50 MG PO QHS, #30 TAB 01/22/18 Tamsulosin Hcl* (Tamsulosin Hcl*) 0.4 Mg Cap.er.24h, 0.4 MG PO HS, CAP 01/22/18 Melatonin (Melatonin) 5 Mg Tablet, 5 MG PO HS, TAB 01/22/18 Finasteride* (Finasteride*) 5 Mg Tablet, 5 MG PO DAILY, TAB 01/22/18 Docusate Sodium* (Dok*) 250 Mg Capsule, 250 MG PO DAILY, #60 CAP 01/22/18 Citalopram Hydrobromide* (Celexa*) 10 Mg Tablet, 10 MG PO DAILY, #30 TAB 01/22/18 Atorvastatin* (Atorvastatin*) 40 Mg Tablet, 40 MG PO QHS, #30 TAB 01/22/18 Aspirin (Low Dose Aspirin) 81 Mg Tablet.dr, 81 MG PO DAILY, #30 TAB 01/22/18 Discontinued Reported Medications Cyanocobalamin* (Vitamin B12*) 500 Mcg Tab, 1000 MCG PO DAILY, TAB 01/22/18 Allergies Allergies: Coded Allergies: donepezil (Verified Allergy, Unknown, 10/20/18) PMhx/Soc History of Surgery: Yes (R-EYE CATARACT) Anesthesia Reaction: No Hx Neurological Disorder: No Hx Respiratory Disorders: No Hx Cardiac Disorders: No Hx Psychiatric Problems: No Hx Miscellaneous Medical Probl: Yes (ALZHEIMER'S, PROSTATE CA, R-EYE RETINAL DETACHMENT) Hx Alcohol Use: No Hx Substance Use: No Hx Tobacco Use: No Smoking Status: Never smoker FmHx Family History: No coronary disease Physical Exam Vitals Vital Signs Date Temp Pulse Resp B/P (MAP) Pulse Ox O2 O2 Flow FiO2 Time Delivery Rate 10/20/18 62 94 Room Air 15:42 10/20/18 50 19 123/60 93 Room Air 15:02 (81) 10/20/18 97.0 56 22 110/98 100 14:26 (102) Physical Exam Const: Well-developed, well-nourished Head: Atraumatic, normocephalic Eyes: Normal Conjunctiva, PERRLA, EOMI, normal sclera, no nystagmus ENT: Normal External Ears, Nose and Mouth, moist mucus membranes. Neck: Full range of motion. No meningismus, no lymphadenopathy. Resp: Clear to auscultation bilaterally, no wheezing, rhonchi, rales Cardio: Regular rate and rhythm, no murmurs, S1 S2 present Abd: Soft, non tender x 4, non distended. Normal bowel sounds, no guarding or rebound, no pulsitile abdominal masses or bruits Skin: No petechiae or rashes, no ecchymosis , no maculopapular rash Back: No midline or flank tenderness Ext: No cyanosis, or edema, FROM x 4, normal inspection, neurovascularly intact x 4 Neur: Awake and alert, STR 5/5 x 4, sensation intact x 4, no focal findings, cerebellum intact Psych: Demented Result Diagram: 10/20/18 1542 10/20/18 1542 Results 24 hrs Laboratory Tests Test 10/20/18 15:42 White Blood Count 9.1 10^3/ul Red Blood Count 3.57 10^6/ul Hemoglobin 11.1 g/dl Hematocrit 34.3 % Mean Corpuscular Volume 96.1 fl Mean Corpuscular Hemoglobin 31.1 pg Mean Corpuscular Hemoglobin Concent 32.4 g/dl Red Cell Distribution Width 14.3 % Platelet Count 149 10^3/UL Mean Platelet Volume 10.9 fl Immature Granulocytes % 0.300 % Neutrophils % 74.4 % Lymphocytes % 16.3 % Monocytes % 7.5 % Eosinophils % 0.7 % Basophils % 0.8 % Nucleated Red Blood Cells % 0.0 /100WBC Immature Granulocytes # 0.030 10^3/ul Neutrophils # 6.8 10^3/ul Lymphocytes # 1.5 10^3/ul Monocytes # 0.7 10^3/ul Eosinophils # 0.1 10^3/ul Basophils # 0.1 10^3/ul Nucleated Red Blood Cells # 0.0 10^3/ul Sodium Level 141 mmol/L Potassium Level 3.7 mmol/L Chloride Level 110 mmol/L Carbon Dioxide Level 22 mmol/L Anion Gap 9 Blood Urea Nitrogen 19 mg/dl Creatinine 1.23 mg/dl Est Glomerular Filtrat Rate mL/min mL/min Glucose Level 96 mg/dl Calcium Level 8.7 mg/dl Total Bilirubin 0.7 mg/dl Direct Bilirubin 0.00 mg/dl Indirect Bilirubin 0.7 mg/dl Aspartate Amino Transf (AST/SGOT) 28 IU/L Alanine Aminotransferase (ALT/SGPT) 11 IU/L Alkaline Phosphatase 47 IU/L Total Protein 6.7 g/dl Albumin 3.6 g/dl Globulin 3.10 g/dl Albumin/Globulin Ratio 1.16 Lipase 64 U/L Current Medications Medications Dose Sig/Brook Start Time Status Last (Trade) Ordered Route PRN Stop Time Admin Dose Reason Admin Sodium 1,000 ml @ Q1H STAT 10/20/18 DC 10/20/18 Chloride 1,000 mls/hr IV 14:37 14:47 10/20/18 15:36 1 mg ONCE STAT 10/20/18 DC 10/20/18 Hydromorphone IV 14:37 14:46 HCl 10/20/18 14:38 (Dilaudid) Ondansetron 4 mg ONCE STAT 10/20/18 DC 10/20/18 HCl (Zofran IV 14:37 14:46 Inj) 10/20/18 14:38 100 ml @ ONCE ONCE 10/20/18 Metronidazole 100 mls/hr IVPB 17:30 10/20/18 18:29 Procedures/[place] [id number] Radiology Main Line: [phone] DIAGNOSTIC IMAGING REPORT Patient: JUNG POLANCO : 09/01/1988 Age: 30 Sex: M MR #: [id number] DOS: 10/20/18 1445 Ordering MD: KIERSTEN WOODSON DO Location: E/R Room/Bed: PROCEDURE: CT Brain without. CLINICAL INDICATION: Seizure TECHNIQUE: A CT of the brain was performed utilizing axial sections from the skull base through the vertex without contrast. The scan was reviewed in soft tissue brain and high frequency resolution bone algorithm windows. Images were reviewed on a high-resolution PACS workstation. The exam CTDI = 39.54 mGy, and the DLP = 634.23 mGy-cm. One or more of the following dose reduction techniques were used: Automated exposure control, adjustment of the mA and / or kV according to patient size, or use of iterative reconstruction technique. DICOM images are available. COMPARISON: CT BRAIN 05/31/2018 FINDINGS: Again noted are postsurgical changes from left frontoparietal craniectomy. There is a valve type device within the right frontal scalp subcutaneous soft tissues extending to the posterior calvarium. The ventricles are midline in position. There is ex vacuo dilatation of the left lateral ventricle and particularly the left temporal horn. There are encephalomalacic changes of the left parietal temporal lobes. There is no intracranial hemorrhage, midline shift, or mass effect. No abnormal extra-axial fluid collections are identified. The basal cisterns are patent. The posterior fossa is unremarkable. The visualized portions of the orbits are unremarkable. The paranasal sinuses and mastoid air cells are clear. No calvarial fracture or abnormality are identified. The soft tissues are unremarkable. IMPRESSION: 1. No acute intracranial abnormality identified. No significant interval change. 2. Postsurgical changes from left frontoparietal craniectomy with ence phalomalacic changes of the left temporal and parietal lobes and ex vacuo dilatation of the left lateral ventricle. RPTAT: HH .Steph Ayoub MD, Date Time Electronically viewed and signed by .Steph Ayoub MD, on 10/20/2018 15:35 .G/ CC: KIERSTEN WOODSON DO [id number] Patient's CAT scan is unremarkable there is no bowel obstruction or colitis. T he patient had a few rounds of some malodorous diarrhea. I will give him an IV dose of Flagyl and try to send off a stool culture. Departure Diagnosis: Primary Impression: Nausea, vomiting, and diarrhea Condition: Stable KIERSTEN WOODSON DO Oct 20, 2018 18:01
[2018-10-20] MEDS ORDERED: CIPR500T4 PO (18:07)
[2018-10-20] MEDS ORDERED: METR500T PO (18:07)
[2018-10-20] MEDS: DOCUSATE CALCIUM 240 MG CAP PO ONE ×2 (19:59→20:02)
[2018-10-20] MEDS ORDERED: CITALOPRAM 20 MG TAB PO ONE (20:00)
[2018-10-20] MEDS ORDERED: traZODone 50 MG TAB PO ONE (20:00)
[2018-10-20] MEDS ORDERED: MELATONIN 5 MG TABLET PO SCH (21:00)
[2018-10-20] MEDS ORDERED: HALOPERIDOL 5 MG INJ IV ONE (21:30)
[2018-10-20 22:22] VITALS: BP 145/102; PULSE 88; RESP 16
== END 2018-10-20 22:30 | disposition home or self-care (01) ==
LOC: E/R 14:22
DX: R11.2 Nausea with vomiting, unspecified (principal); R19.7 Diarrhea, unspecified; G30.9 Alzheimer's disease, unspecified; Z79.82 Long term (current) use of aspirin; Z85.46 Personal history of malignant neoplasm of prostate
CPT/HCPCS: 74176; 80053; 83690; 85025; J1170; J1630; J2405; J7030; 36415; 96361; 96374; 96375

== ENCOUNTER 2018-11-02 19:51 | Emergency (ER) | payer OTHER ==
[~2018-11-02] VITALS: Ht 175.3 cm; Wt 79.5 kg
[~2018-11-02 19:51] MED LIST changes: +CHOL100062 PO; +CIPR500T4 PO; +CYAN-23 PO; -CYAN500T46 PO; +METR500T PO; +POLY17PO6 PO
[2018-11-02 20:02] VITALS: Ht 175.3 cm; Wt 79.5 kg
--- NOTE | 2018-11-02 20:19 | ERD ---
ER Documentation Chief Complaint Chief Complaint bib ra from half-way for more aloc than usual HPI History is limited due to the patient's cognitive impairment and is obtained primarily from review of alf facility records, EMS and subsequently the patient's family when they arrived several hours later. 82-year-old male with a history of prostate cancer, Alzheimer's dementia and recent DVT status post IVC filter placement today at [facility] presents to the ED via rescue ambulance for evaluation of worsening confusion, facial droop and possible syncope. As per family members patient was well when he was transfe rred back to the alf facility after the procedure at approximately 1700 but at 1740 they received a call saying that the patient had collapsed and was noticed to have a left facial droop and was not responding normally. Patient was transferred to the ED for further evaluation. Patient states he feels well and does not know why he was sent to the hospital. He denies headache, neck pain, chest pain, abdominal pain or vomiting. No documented fevers or chills. Patient is currently back to baseline. ROS Unobtainable except as per HPI due to the patient's cognitive impairment. Medications Home Meds Active Scripts Ciprofloxacin Hcl* (Ciprofloxacin Hcl*) 500 Mg Tablet, 500 MG PO BID for 5 Days, TAB Prov:KIERSTEN WOODSON A. DO 10/20/18 Metronidazole* (Flagyl*) 500 Mg Tablet, 500 MG PO TID for 10 Days, TAB Prov:LELIZZYOSBRYCESTOLOS A. DO 10/20/18 Reported Medications Nystatin (Nystatin Powder) 1 Each Powder.ea., 1 APPLIC TOPICAL BID, #1 BOTTLE 11/02/18 Acetaminophen* (Acetaminophen*) 500 MG Extra Strength Tablet, 1000 MG PO BID PRN for PAIN AND OR ELEVATED TEMP, TAB 10/20/18 Cholecalciferol* (Vitamin D3*) 1,000 Unit Tablet, 1000 UNIT PO DAILY, TAB 10/20/18 Polyethylene Glycol* (Miralax*) 17 Gm Powd.pack, 17 GM PO DAILY, #30 PACKET 10/20/18 Cyanocobalamin (Vitamin B-12) (Vitamin B-12) 1,000 Mcg Capsule, 1000 MCG PO DAILY, CAP 10/20/18 Quetiapine Fumarate* (Quetiapine Fumarate*) 100 Mg Tablet, 50 MG PO Q 12PM, TAB HOLD IF PATIENT SLEEPY 01/22/18 Divalproex Sodium* (Divalproex Sodium*) 250 Mg Tablet.dr, 250 MG PO QPM, #120 TAB 01/22/18 Trazodone Hcl* (Trazodone Hcl*) 50 Mg Tablet, 50 MG PO QHS, #30 TAB 01/22/18 Tamsulosin Hcl* (Tamsulosin Hcl*) 0.4 Mg Cap.er.24h, 0.4 MG PO HS, CAP 01/22/18 Melatonin (Melatonin) 5 Mg Tablet, 5 MG PO HS, TAB 01/22/18 Finasteride* (Finasteride*) 5 Mg Tablet, 5 MG PO DAILY, TAB 01/22/18 Docusate Sodium* (Dok*) 250 Mg Capsule, 250 MG PO DAILY, #60 CAP 01/22/18 Citalopram Hydrobromide* (Celexa*) 10 Mg Tablet, 10 MG PO DAILY, #30 TAB 01/22/18 Atorvastatin* (Atorvastatin*) 40 Mg Tablet, 40 MG PO QHS, #30 TAB 01/22/18 Discontinued Reported Medications Acetaminophen* (Acetaminophen*) 500 MG Extra Strength Tablet, 500 MG PO Q6 PRN for PAIN AND OR ELEVATED TEMP, TAB 01/22/18 Aspirin (Low Dose Aspirin) 81 Mg Tablet.dr, 81 MG PO DAILY, #30 TAB 01/22/18 Allergies Allergies: Coded Allergies: donepezil (Unverified Allergy, Unknown, 11/02/18) PMhx/Soc Reviewed History of Surgery: Yes (R-EYE CATARACT) Anesthesia Reaction: No Hx Neurological Disorder: Yes (Alzheimer's) Hx Respiratory Disorders: No Hx Cardiac Disorders: No Hx Psychiatric Problems: No Hx Miscellaneous Medical Probl: Yes (PROSTATE CA, R-EYE RETINAL DETACHMENT) Hx Alcohol Use: No Hx Substance Use: No Hx Tobacco Use: No FmHx Unknown Physical Exam Vitals Vital Signs Date Temp Pulse Resp B/P (MAP) Pulse Ox O2 O2 Flow FiO2 Time Delivery Rate 11/03/18 97.3 48 12 100/62 99 Room Air 00:00 (75) 11/02/18 49 15 101/66 98 Room Air 23:00 (78) 11/02/18 57 17 115/62 100 Room Air 22:00 (79) 11/02/18 98.7 52 17 107/85 100 21:35 (92) 11/02/18 98.9 52 19 144/80 100 20:02 (101) Physical Exam Const: Alert, no acute distress Head: Atraumatic Eyes: Pupils equal reactive to light. No gaze preference. Normal Conjunctiva ENT: Normal External Ears, Nose and Mouth. Neck: Full range of motion. Carotids are 2+ bilaterally without bruits. No JVD. No meningismus. Resp: Breath sounds are equal and clear to auscultation bilaterally Cardio: Regular rate and rhythm, no murmurs Abd: Soft, non tender, non distended. No masses or abnormal pulsations normal bowel sounds Skin: No petechiae or rashes Back: No midline or flank tenderness Ext: No cyanosis, or edema Neur: Awake and alert but confused. Oriented to person. No facial droop. Moves all extremities with 5/5 strength. DTRs are symmetrical. Plantar reflexes are downgoing. Psych: Patient does not appear anxious or depressed. Result Diagram: 11/02/18212511/02/182125 Results 24 hrs Laboratory Tests Test 11/02/18 21:26 White Blood Count 10.0 10^3/ul Red Blood Count 3.63 10^6/ul Hemoglobin 11.0 g/dl Hematocrit 33.6 % Mean Corpuscular Volume 92.6 fl Mean Corpuscular Hemoglobin 30.3 pg Mean Corpuscular Hemoglobin Concent 32.7 g/dl Red Cell Distribution Width 14.5 % Platelet Count 199 10^3/UL Mean Platelet Volume 10.1 fl Immature Granulocytes % 0.200 % Neutrophils % 82.6 % Lymphocytes % 9.5 % Monocytes % 5.9 % Eosinophils % 1.2 % Basophils % 0.6 % Nucleated Red Blood Cells % 0.0 /100WBC Immature Granulocytes # 0.020 10^3/ul Neutrophils # 8.2 10^3/ul Lymphocytes # 1.0 10^3/ul Monocytes # 0.6 10^3/ul Eosinophils # 0.1 10^3/ul Basophils # 0.1 10^3/ul Nucleated Red Blood Cells # 0.0 10^3/ul Sodium Level 142 mmol/L Potassium Level 4.4 mmol/L Chloride Level 107 mmol/L Carbon Dioxide Level 27 mmol/L Anion Gap 8 Blood Urea Nitrogen 14 mg/dl Creatinine 1.33 mg/dl Est Glomerular Filtrat Rate mL/min mL/min Glucose Level 95 mg/dl Calcium Level 8.8 mg/dl Total Bilirubin 0.6 mg/dl Direct Bilirubin 0.00 mg/dl Indirect Bilirubin 0.6 mg/dl Aspartate Amino Transf (AST/SGOT) 32 IU/L Alanine Aminotransferase (ALT/SGPT) 24 IU/L Alkaline Phosphatase 50 IU/L Troponin I < 0.012 ng/ml Total Protein 7.5 g/dl Albumin 3.8 g/dl Globulin 3.70 g/dl Albumin/Globulin Ratio 1.02 Current Medications Medications Dose Sig/Brook Start Time Status Last (Trade) Ordered Route PRN Stop Time Admin Dose Reason Admin Aspirin 325 mg ONCE ONCE 11/03/18 DC 11/03/18 (Aspirin) PO 00:00 00:18 11/03/18 00:01 Procedures/MDM DOCUMENTS REVIEWED: ED nurse, skilled nurse facility records, EMS report EKG: Time: 2026. Sinus bradycardia. Ventricular rate 54. Normal DE QRS. Prolonged corrected QT of [address] segment elevation or depression. No ectopy. My Interpretation IMAGING: Chest AP portable: Cardiomegaly. Poor inspiration with bibasilar at electasis. No effusions or infiltrates. No mediastinal widening. My interpretation. PROCEDURE: CT BRAIN WITHOUT CONTRAST CLINICAL INDICATION: Altered mental status. TECHNIQUE: Transaxial CT examination of the head was performed without intravenous administration of contrast on a [employer] helical CT scanner. In addition to the brain and bone windows of transaxial images, multiple sagittal and coronal reformatted images were generated for the interpretation. DICOM images are available. Radiation dose: CTDIvol = 39 mGy; total DLP = 634 mGy-cm. One or more of the following dose reduction techniques were used: - Automated exposure control. - Adjustment of the mA and/or kV according to patient size. - Use of iterative reconstruction technique. COMPARISON: CT examination of 07/08/2018. FINDINGS: Evaluation of the supratentorial compartment demonstrates no appreciable recent cerebral infarction, hemorrhage, mass effect, midline shift, or abnormal extra-axial fluid collection. 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 Mild to moderate enlargement of the ventricles and moderate enlargement of the cortical sulci in a pattern of atrophy are normal for the age. Mild to moderate periventricular and subcortical white matter hypoattenuation density is present, which is most likely due to age related microvascular change. Evaluation of the posterior fossa reveals no appreciable infarction, hemorrhage, or mass effect. Mild to moderate atrophic change is compatible with the age of patient. The cerebellar tonsils are in normal position relative to the foramen magnum. The skull is intact without abnormal bone density or destructive lesion. Bilateral mastoid air cells and the visualized paranasal sinuses are normally aerated. IMPRESSION: 1. No appreciable recent cerebral infarction, hemorrhage, or hydrocephalus. 2. 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 3. Mild to moderate age related microvascular change. 4. No interval change. RPTAT: EE Physician Janine Date Time Electronically viewed and signed by Tenzin Pate Physician on 11/02/2018 22:12 PH/ MEDICAL DECISION MAKIN-year-old male with a history of prostate cancer, Alzheimer's dementia and recent DVT status post IVC filter placement today at [facility] presents to the ED via rescue ambulance for evaluation of worsening confusion, facial droop and possible syncope. Patient symptoms have resolved he has been at baseline since arrival. CBC remarkable for mild anemia but no leukocytosis or thrombocytopenia. Chemistry reveals mildly elevated creatinine but no electrolyte abnormalities or hypoglycemia. Troponin is negative. EKG reveals sinus bradycardia and prolonged QT. CT of the brain is unremarkable for acute bleed, infarct, mass or hydrocephalus. Chest x-ray is negative for CHF or pneumonia. Possible TIA and patient will need further evaluation. Aspirin 325 mg orally administered. Unwitnessed event possible syncope may be related to cardiac dysrhythmia or sick sinus syndrome will need further evaluation. Patient accepted for transfer to [facility] via [facility] ambulance for further evaluation and management. CALLS/CONSULTS: Time: 22:55, [facility]. 23:42. Discussed with Dr Sharif. Case #[id number]. Patient accepted for transfer. Counseled patient and family via phone regarding diagnosis, diagnostic results and plan for admission. Departure Diagnosis: Primary Impression: TIA (transient ischemic attack) Additional Impressions: Bradycardia Syncope Syncope type: unspecified Qualified Codes: R55 - Syncope and collapse Dementia Dementia type: Alzheimer's disease Alzheimer's disease onset: unspecified onset Dementia behavioral disturbance: without behavioral disturbance Qualified Codes: G30.9 - Alzheimer's disease, unspecified; F02.80 - Dementia in other diseases classified elsewhere without behavioral disturbance Condition: Stable (For transfer.) KERMIT BEAN MD Nov 02, 2018 20:19
[2018-11-02] MEDS ORDERED: NYST1POW22 TOPICAL (23:05)
[2018-11-03] VITALS: BP 100/62; PULSE 48; RESP 12
[2018-11-03] MEDS ORDERED: ASPIRIN 325 MG TAB PO ONE
== END 2018-11-03 02:12 | disposition short-term general hospital (02) ==
LOC: E/R 19:51
DX: G45.9 Transient cerebral ischemic attack, unspecified (principal); G30.9 Alzheimer's disease, unspecified; F02.80 Dementia in other diseases classified elsewhere, unspecified severity, without behavioral disturbance, psychotic disturbance, mood disturbance, and anxiety; R55 Syncope and collapse; Z85.46 Personal history of malignant neoplasm of prostate
CPT/HCPCS: 70450; 71045; 80053; 84484; 85025; 93005